=== PATIENT | female | born 1960 | race Hispanic/Latino ===

== ENCOUNTER 2019-01-22 18:51 | Emergency (ER) | payer OTHER ==
[2019-01-22] MEDS ORDERED: KETOROLAC TROMETHAMINE 60 MG/2 ML VIAL ONE (19:37)
[2019-01-22] MEDS ORDERED: LIDOCAINE HCL-MPF 1% 2ML VIAL ONE (19:37)
[2019-01-22] MEDS ORDERED: CEFTRIAXONE SODIUM 1 GM ONE (19:38)
== END 2019-01-22 20:20 | disposition home or self-care (01) ==
LOC: EDH 18:51
DX: H66.92 Otitis media, unspecified, left ear (principal); I10 Essential (primary) hypertension
CPT/HCPCS: 96372 ×2; 99284; J0696; J1885; J3490

== ENCOUNTER 2021-09-20 13:25 | Emergency (ER) | payer OTHER ==
[~2021-09-20] VITALS: Ht 147.3 cm; Wt 98.4 kg
[2021-09-20] MEDS ORDERED: CYCL-309 PO (13:56)
[2021-09-20] MEDS ORDERED: IBUP-2070 PO (13:56)
[2021-09-20] MEDS ORDERED: PRED20TA3 PO (13:56)
[2021-09-20] MEDS ORDERED: PREDNISONE 20 MG TABLET PO ONE (14:00)
[2021-09-20] MEDS ORDERED: LORAZEPAM 1 MG TABLET PO ONE (14:00)
[2021-09-20] MEDS ORDERED: KETOROLAC 30MG VIAL (30MG/ML) IM ONE (14:00)
[2021-09-20 16:53] VITALS: BP 122/84
== END 2021-09-20 16:53 | disposition home or self-care (01) ==
LOC: EDH 13:25
DX: M54.42 Lumbago with sciatica, left side (principal); I10 Essential (primary) hypertension; Z79.1 Long term (current) use of non-steroidal anti-inflammatories (NSAID); Z79.52 Long term (current) use of systemic steroids
CPT/HCPCS: 96372; 99283; J1885

== ENCOUNTER 2024-09-13 22:54 | Emergency (ER) | payer BC ==
[~2024-09-13] VITALS: Ht 147.3 cm; Wt 99.8 kg
[~2024-09-13 22:54] MED LIST: CYCL-309 PO; IBUP-2070 PO; PRED20TA3 PO
[2024-09-13 23:02] VITALS: BP 160/84; PULSE 75; RESP 18; TEMP 98; O2SAT 98
[2024-09-13] MEDS ORDERED: CEPH500B PO (23:03)
--- NOTE | 2024-09-13 23:04 | ERN ---
ED Note History of Present Illness Stated Complaint: STEP ON NAIL, LEFT FOOT Chief Complaint: FOOT INJURY/PAIN Time Seen by MD: 22:57 Time Seen by Midlevel: 23:00 Dictation: 64-year-old female coming in after stepping on a nail with her left foot plantar aspect about 1800. Patient does not recall if she is current with her tetanus vaccine. Patient was complaining of pain to the area. Full range of motion to the metatarsals. No active bleeding, no swelling. Allergies: Coded Allergies: No Known Drug Allergies (Unverified Allergy, Unknown, 01/22/19) Home Meds Active Scripts Ibuprofen (Ibuprofen) 600 Mg Tablet, 600 MG PO Q6H PRN for PAIN, #15 TAB Prov:FITTING,DOYLE HOUGHP 09/20/21 Prednisone (Prednisone) 20 Mg Tablet, 1 TAB PO AD for 6 Days, #6 TAB 0 Refills TAKE 1 TAB BY MOUTH THREE TIMES PER DAY X3 DAYS, THEN TAKE 1 TAB BY MOUTH TWICE A DAY X2 DAYS, THEN TAKE 1 TAB BY MOUTH ONCE A DAY X1 DAY. 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 09/20/21 Past Medical History Past Medical History: Hypertension Surgical History: Other Surgical History Other: KNEE, RIGHT Review of System Dictation Constitutional: Negative for fever,chills, and weight loss Eyes: Negative for injury, pain,redness, and discharge ENT: Negative for injury,pain or swelling Cardiovascular: Negative for chest pain, palpitations, and edema Respiratory: Negative for shortness of breath, cough, and wheezing, Abdomen/GI: Negative for abdominal pain, nausea, vomiting, diarrhea, and constipation Back: Negative for injury and pain : Negative for injury, bleeding and discharge MS/Extremity: Negative for injury and deformity Skin: Negative for rash, and discoloration Neuro: Negative for headache, weakness, numbness, tingling, and seizure Psych: Negative for suicide ideation, homicidal ideation, and hallucinations Review of Systems: was completed Initial Vital Sign VS Vital Signs Date Time Temp Pulse Resp B/P (MAP) Pulse Ox O2 Delivery O2 Flow Rate FiO2 09/13/24 22:56 98.2 77 20 169/69 100 Room Air Physical Exam Dictation General: awake, alert, NAD Head/Face: Normocephalic, atraumatic Eyes: PERRL, EOMI, vision at baseline ENT: oral cavity clear, TMs clear, no signs of infection Neck: Trachea midline, supple, no nuchal rigidity Cardiovascular: RRR, normal S1/S2, No MRGs, no JVD Respiratory: CTAB, no respiratory distress, No rales or wheezes Abdomen: Soft, non-tender, non-distended, normal bowel sounds, no guarding or rebound. Skin: Warm, dry, normal turgor, no rash, puncture wound to the left foot plantar aspect MS/Extremity: Pulses equal, no cyanosis, neurovascular intact, FROM Neuro: COAx4, GCS 15, strength 5/5, CN 2-12 intact, normal cerebellar exam, normal gait, Psych: Normal behavior, mood, and affect normal ED Course ED Course Orders Procedure Category Date Status Time Tetanus,Diphtheria PHA 09/13/24 Transmitted Tox [Adult] (Diphther 23:00 Vital Signs Date Time Temp Pulse Resp B/P (MAP) Pulse Ox O2 Delivery O2 Flow Rate FiO2 09/13/24 22:56 98.2 77 20 169/69 100 Room Air Medical Decision Making MDM MDM: 64-year-old female coming in after stepping on a nail with her left foot plantar aspect about 1800. Patient does not recall if she is current with her tetanus vaccine. Patient was complaining of pain to the area. Full range of motion to the metatarsals. No active bleeding, no swelling. Patient was updated on her tetanus vaccine. We will discharge patient antibiotics. Discussed with the patient signs and symptoms return back to the ER. Educated to follow up with the PCP in 1-2 days. Differential diagnosis: Puncture wound, cellulitis, laceration Rationale: Tests considered and ordered secondary to shared decision making include: Previous outside records reviewed: Old ER visits. Risk of complication and/or morbidity or mortality of patient management: None Medications-Per medication reconciliation Need for hospitalization: Patient does not meet criteria for hospitalization. Need for emergency major/minor surgery: No There are no social concerns with this patient. Prescription drug management Prescriptions will include symptomatic care Patient's prior external medical records from other ER visits were reviewed by me as indicated. Prior testing and results from previous visits were reviewed. Prior tests were taken into account with medical decision making and resource utilization, independent historian/historians were used to obtain complete medical history. I independently interpreted the test that were performed, results were reviewed by me and considered findings on radiology if ordered. Medical management and examination interpretation discussions were had by me with other qualified healthcare professionals as indicated for the patient's care. DX & DISP Disposition: Discharge Departure Impression: Primary Impression: Puncture wound of left foot Condition: Stable Scripts Cephalexin Monohydrate (Keflex) 500 Mg Cap 500 MG PO QID for 5 Days, #28 CAP Prov: JEROMY MARTINEZ BLOW UP OPERATOR 09/13/24 Additional Instructions: Follow up with the primary doctor in 1-2 days. Return to the ER if you develop any signs of infection. Referrals: GERTRUDIS PRICE DO (PCP) Time of Disposition: 23:03 I have reviewed the case, and I agree with, Diagnosis and Plan JEROMY MARTINEZ NP Sep 13, 2024 23:04
[2024-09-13] MEDS: teTANUS/diphthERIA TOXOID [ADULT] 0.5 ML VIAL IM ONE (23:08)
== END 2024-09-13 23:17 | disposition home or self-care (01) ==
LOC: EDH 22:54
DX: S91.332A Puncture wound without foreign body, left foot, initial encounter (principal); I10 Essential (primary) hypertension; W45.0XXA Nail entering through skin, initial encounter; Y93.89 Activity, other specified; Y92.89 Other specified places as the place of occurrence of the external cause; Y99.8 Other external cause status
CPT/HCPCS: 90471; 90714; 99284